=== PATIENT | female | born 1955 | race Two or more races ===

== ENCOUNTER 2024-03-01 23:51 | Inpatient (IN) | payer OTHER, MEDICARE ==
[~2024-03-01] VITALS: Ht 162.6 cm; Wt 129.3 kg
[2024-03-02] VITALS (33 sets, daily range): BP systolic 116–157; BP diastolic 66–130; TEMP 98.5–100.3; O2SAT 100
[2024-03-02 00:11] LABS: BASOPHILS # (AUTO) 0.1 K/uL (0.0-0.2); BASOPHILS % (AUTO) 0.4 % (0.0-2.0); EOSINOPHILS # (AUTO) 0.2 K/uL (0.0-0.7); EOSINOPHILS % (AUTO) 1.4 % (0.0-6.0); HEMATOCRIT 40 % (33-45); LYMPHOCYTES # (AUTO) 5.3 K/uL (0.8-4.8); LYMPHOCYTES % (AUTO) 35.4 % (20.0-44.0); MEAN CORPUSCULAR HEMOGLOBIN 30 PG (26.0-33.0); MEAN CORPUSCULAR HGB CONC 33 g/dl (31.0-36.0); MEAN CORPUSCULAR VOLUME 92 fL (82-100); MONOCYTES # (AUTO) 0.6 K/uL (0.1-1.30); MONOCYTES % (AUTO) 4.3 % (2.0-12.0); NEUTROPHILS # (AUTO) 8.8 K/uL (1.8-8.9); NEUTROPHILS % (AUTO) 58.5 % (43.0-81.0); PLATELET COUNT (AUTO) 460 K/uL (150-450); RED BLOOD CELL COUNT(AUTO) 4.29 MIL/uL (4.0-5.2); RED CELL DISTRIBUTION WIDTH 15.1 % (11.5-15.0)
[2024-03-02 00:26] LABS: INR 1.08 (0.91-1.10); PARTIAL THROMBOPLASTIN TIME 30.8 SEC (24.3-34.3); PROTHROMBIN TIME 11.4 SECS (9.2-11.1)
[2024-03-02] MEDS: IV NS 0.9% 1,000 ML BAG IV ONE (00:31)
[2024-03-02] MEDS: ROCURONIUM BROMIDE 50 MG/5 ML IV ONE (00:31)
[2024-03-02] MEDS: ETOMIDATE 2 MG/ML VIAL IV ONE (00:31)
[2024-03-02] MEDS ORDERED: CEFEPIME 1 GM VIAL ONE (00:37)
[2024-03-02] MEDS ORDERED: VANCOMYCIN 1 GM /D5W 250 ML PB IV ONE (00:37)
[2024-03-02] MEDS: CEFEPIME 1 GM in IV D5W 50 ML IV ONE (00:39)
[2024-03-02 00:45] LABS: APPEARANCE,URINE SLIGHTLY CLOUDY (CLEAR); BILIRUBIN,URINE NEGATIVE (NEGATIVE); BLOOD, URINE NEGATIVE Ery/uL (NEGATIVE); COLOR,URINE YELLOW (YELLOW); KETONES,URINE NEGATIVE (NEGATIVE); LEUKOCYTE ESTERASE ,URINE 1+ (NEGATIVE); NITRITE, URINE NEGATIVE (NEGATIVE); PH,URINE 5.5 (5.0-8.0); PROTEIN,URINE 1+ mg/dl (NEGATIVE); UGLUCOSE NEGATIVE (NEGATIVE)
[2024-03-02 01:06] LABS: ADD URINE CULTURE YES; BACTERIA,URINE Many /HPF (None Seen); RBC,URINE 0-2 /HPF (0-2); WBC,URINE 51-80 /HPF (0-3)
[2024-03-02 01:09] LABS: AMPHETAMINE, URINE NEGATIVE (NEGATIVE); BARBITURATE, URINE NEGATIVE (NEGATIVE); BENZODIAZEPINE, URINE NEGATIVE (NEGATIVE); CANNABINOID, URINE NEGATIVE (NEGATIVE); COCCAINE, URINE NEGATIVE (NEGATIVE); OPIATE, URINE NEGATIVE (NEGATIVE); PHENCYCLIDINE SCREEN,URINE NEGATIVE (NEGATIVE)
[2024-03-02 01:13] LABS: LACTIC ACID 1.3 mmol/L (0.4-2.0)
[2024-03-02] MEDS ORDERED: ASPIRIN 300 MG/SUPP.RECT RC ONE (01:20)
[2024-03-02] MEDS ORDERED: PROPOFOL 100 ML ONE ×2 (01:24→05:24)
[2024-03-02] MEDS: ASPIRIN 300 MG/SUPP.RECT RC ONE (01:25)
[2024-03-02] MEDS: VANCOMYCIN 1 GM in IV D5W 250 ML IV ONE (01:25)
[2024-03-02] MEDS ORDERED: ZOLPIDEM TARTRATE 5 MG TABLET PO PRN (01:30)
[2024-03-02] MEDS ORDERED: MAGNESIUM HYDROXIDE 30 ML UDC PO PRN (01:30)
[2024-03-02] MEDS ORDERED: MAG HYDROX/AL HYDROX/SIMETH 30 ML UDC PO PRN (01:30)
[2024-03-02] MEDS ORDERED: ACETAMINOPHEN 325 MG TABLET PO PRN (01:30)
[2024-03-02] MEDS ORDERED: ONDANSETRON HCL/PF 4 MG/2 ML VIAL IVP PRN (01:30)
[2024-03-02 01:33] LABS: ASPARTATE AMINOTRANSFERASE 26 U/L (15-37); BILIRUBIN,DIRECT 0.1 mg/dL (0.0-0.2); BILIRUBIN,TOTAL 0.3 mg/dL (0.2-1.0); CREATININE 0.9 mg/dL (0.6-1.3)
[2024-03-02] MEDS: PROPOFOL 100 ML IV PRN ×2 (01:38→09:55)
[2024-03-02 01:45] LABS: ALANINE AMINOTRANSFERASE 21 U/L (12-78); ALBUMIN 3.7 g/dL (3.4-5.0); ALKALINE PHOSPHATASE 95 U/L (46-116); CALCIUM, SERUM 9.6 mg/dL (8.5-10.1); CARBON DIOXIDE 26 mmol/L (21-32); CHLORIDE 95 mmol/L (98-107); GLUCOSE 187 mg/dL (74-106); POTASSIUM 5.7 mmol/L (3.5-5.1); SODIUM SERUM 130 mmol/L (136-145); TOTAL PROTEIN, SERUM 8.4 g/dL (6.4-8.2); UREA NITROGEN, BLOOD 25 mg/dL (7-18)
[2024-03-02] MEDS ORDERED: INSULIN REGULAR, HUMAN 100 UNIT/ML 3 ML VIAL SQ PRN (02:00)
[2024-03-02] MEDS ORDERED: DEXTROSE 50%-WATER 50 ML DISP.SYRIN IV PRN (02:00)
[2024-03-02] MEDS ORDERED: FUROSEMIDE 20 MG/2 ML VIAL ONE (02:20)
[2024-03-02] MEDS ORDERED: CALCIUM CHLORIDE 1,000 MG/10 ML DISP.SYRIN ONE (02:21)
[2024-03-02] MEDS ORDERED: SODIUM BICARBONATE SYR 50 MEQ/50 ML DISP.SYRIN ONE (02:21)
[2024-03-02] MEDS: CALCIUM CHLORIDE 1,000 MG/10 ML DISP.SYRIN IV ONE (02:38)
[2024-03-02] MEDS: DEXTROSE 50%-WATER 50 ML DISP.SYRIN IV ONE (02:38)
[2024-03-02] MEDS: FUROSEMIDE 40 MG/4 ML VIAL IV ONE (02:39)
[2024-03-02] MEDS: SODIUM BICARBONATE SYR 50 MEQ/50 ML DISP.SYRIN IV ONE (02:39)
[2024-03-02] MEDS: INSULIN REGULAR, HUMAN 100 UNIT/ML 10 ML VIAL IV ONE (02:40)
[2024-03-02 02:44] LABS: ABG BASE EXCESS 1.1 mmol/L (-2.0-3.0); ABG OXYGEN SATURATION 99.3 % (94.0-98.0); ABG PCO2 32.9 mmHg (32.0-45.0); ABG PH 7.481 (7.350-7.450); ABG PO2 314.6 mmHg (83.0-108.0); ABG TOTAL HEMOGLOBIN 12.8 G/dL (12.0-16.0); COHb 0.3 % (0.5-1.5); MetHb 0.2 % (0.0-1.5); O2Hb 98.8 % (94.0-97.0); PEEP,BG 5 cm H2O; VT, ABG 500 mL
[2024-03-02] MEDS: ALBUTEROL FS 2.5 MG/3 ML VIAL.NEB NEB ONE (03:37)
[2024-03-02] MEDS ORDERED: ALBUTEROL FS 2.5 MG/3 ML VIAL.NEB ONE (03:38)
[2024-03-02] MEDS: BLOOD SUGAR DIAGNOSTIC 1 EACH STRIP IN SCH ×2 (05:00→12:39)
[2024-03-02] MEDS ORDERED: ROCURONIUM BROMIDE 50 MG/5 ML IV ONE ×2 (08:35)
[2024-03-02] MEDS ORDERED: ZOLPIDEM TARTRATE 5 MG TABLET GT PRN (09:44)
[2024-03-02] MEDS ORDERED: MAG HYDROX/AL HYDROX/SIMETH 30 ML UDC GT PRN (09:44)
[2024-03-02] MEDS ORDERED: MAGNESIUM HYDROXIDE 30 ML UDC GT PRN (09:44)
[2024-03-02] MEDS: IV NS 0.9% 1,000 ML IV PRN (09:55)
[2024-03-02] MEDS: ACETAMINOPHEN 650 MG/20.3 ML UDC GT PRN (09:57)
[2024-03-02] MEDS: PANTOPRAZOLE 40 MG VIAL IV SCH (09:57)
[2024-03-02] MEDS: ENOXAPARIN SODIUM 40 MG/0.4 ML DISP.SYRIN SQ SCH (09:59)
[2024-03-02] MEDS ORDERED: PHARMACY TO CHANGE PO MEDS TO GT/NG XX PRN (10:00)
[2024-03-02] MEDS ORDERED: ACET325T53 PO (10:31)
[2024-03-02] MEDS ORDERED: GABA300C PO (10:31)
[2024-03-02] MEDS ORDERED: GLUC1KIT IM (10:31)
[2024-03-02] MEDS ORDERED: ATOR20TA PO (10:31)
[2024-03-02] MEDS ORDERED: DOCU100C36 PO (10:31)
[2024-03-02] MEDS ORDERED: INSU100V42 SQ (10:31)
[2024-03-02] MEDS ORDERED: ENOX40DI SQ (10:31)
[2024-03-02] MEDS ORDERED: LEVO50TA8 PO (10:31)
[2024-03-02] MEDS ORDERED: POVI1MED TP (10:32)
[2024-03-02] MEDS ORDERED: NALO4SPR NS (10:32)
[2024-03-02] MEDS ORDERED: MINE133E RC (10:32)
[2024-03-02] MEDS ORDERED: ONDA-97 PO (10:32)
[2024-03-02] MEDS ORDERED: MULT-213 PO (10:32)
[2024-03-02] MEDS ORDERED: METF-440 PO (10:32)
[2024-03-02] MEDS ORDERED: ZINC50TA39 PO (10:32)
[2024-03-02] MEDS ORDERED: ALLA266C2 TP (10:32)
[2024-03-02] MEDS ORDERED: NEOM28OI TP (10:32)
[2024-03-02] MEDS ORDERED: ASCO-352 PO (10:32)
[2024-03-02] MEDS ORDERED: POLY17PO4 PO (10:32)
[2024-03-02] MEDS ORDERED: OXYC1TAB12 PO (10:32)
[2024-03-02] MEDS: CEFEPIME 2 GM in IV D5W 100 ML IV SCH (11:02)
[2024-03-02] MEDS: INSULIN REGULAR, HUMAN 100 UNIT/ML 3 ML VIAL SQ PRN (12:41)
[2024-03-02] MEDS: GLUCERNA 1.2 1,000 ML BOTTLE NG PRN (13:39)
[2024-03-02] MEDS: VANCOMYCIN HCL 1.25 GM in IV D5W 250 ML IV SCH (13:42)
[2024-03-02] MEDS: IPRATROPIUM NEB FS 0.5 MG/2.5 ML AMPUL.NEB NEB SCH (14:04)
[2024-03-02] MEDS: ALBUTEROL FS 2.5 MG/3 ML VIAL.NEB NEB SCH (14:04)
[2024-03-02] MEDS ORDERED: PROPOFOL 100 ML IV PRN (16:30)
[2024-03-02] MEDS: ALBUTEROL HALF STRENGTH 1.25 MG/3 ML VIAL.NEB NEB SCH (19:25)
[2024-03-03] VITALS (37 sets, daily range): BP systolic 108–172; BP diastolic 65–103; TEMP 97.5–98.2; O2SAT 94–100
[2024-03-03] MEDS: Z GUARD REMEDY 4 OZ OINT TP PRN (07:51)
[2024-03-03] MEDS: GLUCERNA 1.2 1,000 ML BOTTLE NG PRN (07:53)
[2024-03-03] MEDS: PANTOPRAZOLE 40 MG/PACK PACK NG SCH (08:40)
[2024-03-03 10:26] LABS: ABG BASE EXCESS -1.1 mmol/L (-2.0-3.0); ABG OXYGEN SATURATION 97.8 % (94.0-98.0); ABG PCO2 22.4 mmHg (32.0-45.0); ABG PH 7.554 (7.350-7.450); ABG PO2 95.5 mmHg (83.0-108.0); ABG TOTAL HEMOGLOBIN 13.4 G/dL (12.0-16.0); COHb 0.9 % (0.5-1.5); MetHb 0.3 % (0.0-1.5); O2Hb 96.6 % (94.0-97.0); PEEP,BG 5 cm H2O; SITE, ABG RIGHT RADIAL; VT, ABG 500 mL
[2024-03-03 13:36] LABS: BASOPHILS % (AUTO) 0.3 % (0.0-2.0); EOSINOPHILS # (AUTO) 0.3 K/uL (0.0-0.7); HEMATOCRIT 36 % (33-45); HEMOGLOBIN 12.3 g/dL (11.5-14.8); LYMPHOCYTES # (AUTO) 2.3 K/uL (0.8-4.8); MEAN CORPUSCULAR HEMOGLOBIN 30 PG (26.0-33.0); MEAN CORPUSCULAR HGB CONC 34 g/dl (31.0-36.0); MEAN CORPUSCULAR VOLUME 89 fL (82-100); MONOCYTES # (AUTO) 0.7 K/uL (0.1-1.30); MONOCYTES % (AUTO) 6.9 % (2.0-12.0); NEUTROPHILS # (AUTO) 6.7 K/uL (1.8-8.9); NEUTROPHILS % (AUTO) 66.8 % (43.0-81.0); PLATELET COUNT (AUTO) 343 K/uL (150-450); RED BLOOD CELL COUNT(AUTO) 4.05 MIL/uL (4.0-5.2); RED CELL DISTRIBUTION WIDTH 14.9 % (11.5-15.0); WHITE BLOOD COUNT (AUTO) 10.1 K/uL (4.3-11.0)
[2024-03-03 14:12] LABS: CALCIUM, SERUM 9.2 mg/dL (8.5-10.1); CREATININE 0.7 mg/dL (0.6-1.3); MAGNESIUM 1.2 mg/dL (1.8-2.4); PHOSPHORUS 3.1 mg/dL (2.5-4.9); POTASSIUM 3.5 mmol/L (3.5-5.1)
[2024-03-03 15:52] LABS: THYROID STIMULATING HORMONE 11.85 uIU/mL (0.358-3.74)
[2024-03-03] MEDS: Magnesium 1GM/D5W 100ML PREMIX 100 ML IV SCH (16:17)
[2024-03-04] VITALS (33 sets, daily range): BP systolic 98–153; BP diastolic 55–80; TEMP 98–98.6; O2SAT 97–100
[2024-03-04 04:47] LABS: BASOPHILS % (AUTO) 0.3 % (0.0-2.0); EOSINOPHILS # (AUTO) 0.3 K/uL (0.0-0.7); EOSINOPHILS % (AUTO) 2.7 % (0.0-6.0); HEMATOCRIT 36 % (33-45); HEMOGLOBIN 11.9 g/dL (11.5-14.8); LYMPHOCYTES # (AUTO) 2.8 K/uL (0.8-4.8); LYMPHOCYTES % (AUTO) 27.7 % (20.0-44.0); MEAN CORPUSCULAR HEMOGLOBIN 31 PG (26.0-33.0); MEAN CORPUSCULAR HGB CONC 33 g/dl (31.0-36.0); MEAN CORPUSCULAR VOLUME 92 fL (82-100); MONOCYTES # (AUTO) 0.9 K/uL (0.1-1.30); MONOCYTES % (AUTO) 9.4 % (2.0-12.0); NEUTROPHILS % (AUTO) 59.9 % (43.0-81.0); PLATELET COUNT (AUTO) 329 K/uL (150-450); RED BLOOD CELL COUNT(AUTO) 3.89 MIL/uL (4.0-5.2); RED CELL DISTRIBUTION WIDTH 15.4 % (11.5-15.0)
[2024-03-04 04:49] LABS: CALCIUM, SERUM 8.5 mg/dL (8.5-10.1); CREATININE 0.7 mg/dL (0.6-1.3); MAGNESIUM 1.8 mg/dL (1.8-2.4); PHOSPHORUS 3.5 mg/dL (2.5-4.9); POTASSIUM 3.7 mmol/L (3.5-5.1)
[2024-03-04 05:42] LABS: ABG BASE EXCESS -2.5 mmol/L (-2.0-3.0); ABG OXYGEN SATURATION 97.6 % (94.0-98.0); ABG PCO2 26.9 mmHg (32.0-45.0); ABG PH 7.481 (7.350-7.450); ABG PO2 98.9 mmHg (83.0-108.0); ABG TOTAL HEMOGLOBIN 12.8 G/dL (12.0-16.0); COHb 0.6 % (0.5-1.5); MetHb 0.3 % (0.0-1.5); O2Hb 96.7 % (94.0-97.0); PEEP,BG 5 cm H2O; SITE, ABG LEFT RADIAL; VT, ABG 500 mL
[2024-03-05] VITALS (27 sets, daily range): BP systolic 90–160; BP diastolic 47–118; TEMP 98.1–99.1; O2SAT 89–100
[2024-03-05 05:25] LABS: CALCIUM, SERUM 8.7 mg/dL (8.5-10.1); CREATININE 0.6 mg/dL (0.6-1.3); POTASSIUM 3.5 mmol/L (3.5-5.1)
[2024-03-05 05:27] LABS: BASOPHILS # (AUTO) 0.1 K/uL (0.0-0.2); BASOPHILS % (AUTO) 0.6 % (0.0-2.0); EOSINOPHILS # (AUTO) 0.2 K/uL (0.0-0.7); HEMATOCRIT 33 % (33-45); HEMOGLOBIN 11.1 g/dL (11.5-14.8); LYMPHOCYTES # (AUTO) 1.6 K/uL (0.8-4.8); MEAN CORPUSCULAR HEMOGLOBIN 31 PG (26.0-33.0); MEAN CORPUSCULAR HGB CONC 34 g/dl (31.0-36.0); MEAN CORPUSCULAR VOLUME 91 fL (82-100); MONOCYTES # (AUTO) 0.8 K/uL (0.1-1.30); MONOCYTES % (AUTO) 7.3 % (2.0-12.0); NEUTROPHILS # (AUTO) 7.6 K/uL (1.8-8.9); NEUTROPHILS % (AUTO) 74.1 % (43.0-81.0); PLATELET COUNT (AUTO) 349 K/uL (150-450); RED CELL DISTRIBUTION WIDTH 15.4 % (11.5-15.0); WHITE BLOOD COUNT (AUTO) 10.3 K/uL (4.3-11.0)
[2024-03-05] MEDS: IV NS 0.9% 1,000 ML IV PRN (10:29)
[2024-03-05 10:44] LABS: ABG OXYGEN SATURATION 96.8 % (94.0-98.0); ABG PCO2 35.2 mmHg (32.0-45.0); ABG PH 7.382 (7.350-7.450); ABG TOTAL HEMOGLOBIN 12.5 G/dL (12.0-16.0); COHb 0.5 % (0.5-1.5); MetHb 0.1 % (0.0-1.5); O2Hb 96.2 % (94.0-97.0); PEEP,BG 5 cm H2O; SITE, ABG RIGHT RADIAL; VT, ABG 500 mL
[2024-03-06] VITALS (32 sets, daily range): BP systolic 104–190; BP diastolic 55–92; TEMP 97.9–98.4; O2SAT 95–100
[2024-03-06 05:24] LABS: BASOPHILS % (AUTO) 0.3 % (0.0-2.0); EOSINOPHILS # (AUTO) 0.4 K/uL (0.0-0.7); EOSINOPHILS % (AUTO) 3.9 % (0.0-6.0); HEMATOCRIT 31 % (33-45); HEMOGLOBIN 10.3 g/dL (11.5-14.8); LYMPHOCYTES % (AUTO) 19.9 % (20.0-44.0); MEAN CORPUSCULAR HEMOGLOBIN 31 PG (26.0-33.0); MEAN CORPUSCULAR HGB CONC 34 g/dl (31.0-36.0); MEAN CORPUSCULAR VOLUME 92 fL (82-100); MONOCYTES % (AUTO) 9.8 % (2.0-12.0); NEUTROPHILS # (AUTO) 6.5 K/uL (1.8-8.9); NEUTROPHILS % (AUTO) 66.1 % (43.0-81.0); PLATELET COUNT (AUTO) 324 K/uL (150-450); RED BLOOD CELL COUNT(AUTO) 3.35 MIL/uL (4.0-5.2); RED CELL DISTRIBUTION WIDTH 15.7 % (11.5-15.0); WHITE BLOOD COUNT (AUTO) 9.8 K/uL (4.3-11.0)
[2024-03-06 09:02] LABS: ABG BASE EXCESS -3.5 mmol/L (-2.0-3.0); ABG OXYGEN SATURATION 98.3 % (94.0-98.0); ABG PH 7.418 (7.350-7.450); ABG PO2 114.8 mmHg (83.0-108.0); ABG TOTAL HEMOGLOBIN 11.3 G/dL (12.0-16.0); COHb 0.6 % (0.5-1.5); MetHb 0.3 % (0.0-1.5); O2Hb 97.4 % (94.0-97.0); PEEP,BG 5 cm H2O; SITE, ABG RIGHT BRACHIAL; VT, ABG 500 mL
[2024-03-06 10:39] LABS: CHOLESTEROL 147 mg/dL (<200); HDL CHOLESTEROL 43 mg/dL (40-60); LDL 70 mg/dL (0-99); TRIGLYCERIDES 108 mg/dL (30-150)
[2024-03-06] MEDS: dexaMETHasone SOD PHOSPHATE 10 MG/ML VIAL IV SCH (14:10)
[2024-03-06] MEDS: diphenhydrAMINE HCL 50 MG/ML VIAL IV SCH (14:10)
[2024-03-06] MEDS: FAMOTIDINE/PF INJ 20 MG/2 ML VIAL IV SCH (14:11)
[2024-03-07] VITALS (31 sets, daily range): BP systolic 105–172; BP diastolic 55–90; TEMP 97–98.5; O2SAT 94–100
[2024-03-07] MEDS: hydrALAZINE HCL IV 20 MG VIAL IV PRN (00:14)
[2024-03-07 05:44] LABS: BASOPHILS % (AUTO) 0.1 % (0.0-2.0); EOSINOPHILS % (AUTO) 0.1 % (0.0-6.0); HEMATOCRIT 35 % (33-45); HEMOGLOBIN 11.7 g/dL (11.5-14.8); LYMPHOCYTES # (AUTO) 1.3 K/uL (0.8-4.8); MEAN CORPUSCULAR HEMOGLOBIN 30 PG (26.0-33.0); MEAN CORPUSCULAR HGB CONC 33 g/dl (31.0-36.0); MEAN CORPUSCULAR VOLUME 91 fL (82-100); MONOCYTES # (AUTO) 0.5 K/uL (0.1-1.30); MONOCYTES % (AUTO) 4.8 % (2.0-12.0); NEUTROPHILS # (AUTO) 8.6 K/uL (1.8-8.9); PLATELET COUNT (AUTO) 336 K/uL (150-450); RED BLOOD CELL COUNT(AUTO) 3.84 MIL/uL (4.0-5.2); RED CELL DISTRIBUTION WIDTH 15.8 % (11.5-15.0); WHITE BLOOD COUNT (AUTO) 10.4 K/uL (4.3-11.0)
[2024-03-08] VITALS (26 sets, daily range): BP systolic 103–176; BP diastolic 53–93; TEMP 97.5–98.4; O2SAT 91–100
[2024-03-08 13:46] LABS: BILIRUBIN,TOTAL 0.2 mg/dL (0.2-1.0); CALCIUM, SERUM 8.6 mg/dL (8.5-10.1); CREATININE 0.7 mg/dL (0.6-1.3); PHOSPHORUS 2.2 mg/dL (2.5-4.9); POTASSIUM 4.1 mmol/L (3.5-5.1); TOTAL PROTEIN, SERUM 6.2 g/dL (6.4-8.2)
[2024-03-08 14:15] LABS: BASOPHILS % (AUTO) 0.1 % (0.0-2.0); EOSINOPHILS % (AUTO) 0.2 % (0.0-6.0); HEMATOCRIT 35 % (33-45); HEMOGLOBIN 11.4 g/dL (11.5-14.8); LYMPHOCYTES # (AUTO) 1.4 K/uL (0.8-4.8); LYMPHOCYTES % (AUTO) 9.9 % (20.0-44.0); MEAN CORPUSCULAR HEMOGLOBIN 31 PG (26.0-33.0); MEAN CORPUSCULAR HGB CONC 33 g/dl (31.0-36.0); MEAN CORPUSCULAR VOLUME 93 fL (82-100); MONOCYTES # (AUTO) 1.1 K/uL (0.1-1.30); NEUTROPHILS # (AUTO) 11.7 K/uL (1.8-8.9); NEUTROPHILS % (AUTO) 81.8 % (43.0-81.0); PLATELET COUNT (AUTO) 340 K/uL (150-450); RED BLOOD CELL COUNT(AUTO) 3.71 MIL/uL (4.0-5.2); WHITE BLOOD COUNT (AUTO) 14.2 K/uL (4.3-11.0)
[2024-03-08 15:28] LABS: ANISOCYTOSIS 1+; BAND % (MANUAL) 1 % (0.0-5.0); BASOPHILS % (MANUAL) 0 % (0.0-2.0); EOSINOPHILS % (MANUAL) 0 % (0-4); LYMPHOCYTES % (MANUAL) 11 % (16-48); MONOCYTES % (MANUAL) 8 % (0-11.0); NEUTROPHILS % (MANUAL) 80 (42-76); PLATELET ESTIMATE ADEQUATE
[2024-03-08] MEDS: NEUTRA PHOS 1 POWD.PACKET GT ONE (16:51)
[2024-03-09] VITALS (29 sets, daily range): BP systolic 95–154; BP diastolic 53–85; TEMP 97.5–98.2; O2SAT 94–100
[2024-03-09 05:38] LABS: HEMATOCRIT 32 % (33-45); HEMOGLOBIN 10.7 g/dL (11.5-14.8); LYMPHOCYTES # (AUTO) 1.5 K/uL (0.8-4.8); LYMPHOCYTES % (AUTO) 13.6 % (20.0-44.0); MEAN CORPUSCULAR HEMOGLOBIN 30 PG (26.0-33.0); MEAN CORPUSCULAR HGB CONC 34 g/dl (31.0-36.0); MEAN CORPUSCULAR VOLUME 90 fL (82-100); MONOCYTES # (AUTO) 0.9 K/uL (0.1-1.30); MONOCYTES % (AUTO) 8.4 % (2.0-12.0); NEUTROPHILS # (AUTO) 8.3 K/uL (1.8-8.9); PLATELET COUNT (AUTO) 337 K/uL (150-450); RED BLOOD CELL COUNT(AUTO) 3.51 MIL/uL (4.0-5.2); RED CELL DISTRIBUTION WIDTH 15.3 % (11.5-15.0); WHITE BLOOD COUNT (AUTO) 10.7 K/uL (4.3-11.0)
[2024-03-09 06:55] LABS: CALCIUM, SERUM 8.6 mg/dL (8.5-10.1); POTASSIUM 4.1 mmol/L (3.5-5.1)
[2024-03-09 06:56] LABS: CREATININE 0.7 mg/dL (0.6-1.3)
[2024-03-09] MEDS: NEUTRA PHOS 1 POWD.PACKET GT ONE (16:14)
[2024-03-09] MEDS: dexaMETHasone SOD PHOSPHATE 10 MG/ML VIAL IV SCH (16:15)
[2024-03-10] VITALS (44 sets, daily range): BP systolic 88–180; BP diastolic 45–88; TEMP 97.5–98.4; O2SAT 94–100
[2024-03-10] MEDS: IV NS 0.9% 250 ML IV PRN (13:54)
[2024-03-10 15:33] LABS: BASOPHILS % (AUTO) 0.2 % (0.0-2.0); EOSINOPHILS % (AUTO) 0.1 % (0.0-6.0); HEMATOCRIT 33 % (33-45); HEMOGLOBIN 11.1 g/dL (11.5-14.8); LYMPHOCYTES # (AUTO) 1.7 K/uL (0.8-4.8); LYMPHOCYTES % (AUTO) 14.3 % (20.0-44.0); MEAN CORPUSCULAR HEMOGLOBIN 31 PG (26.0-33.0); MEAN CORPUSCULAR HGB CONC 34 g/dl (31.0-36.0); MEAN CORPUSCULAR VOLUME 91 fL (82-100); MONOCYTES # (AUTO) 1.2 K/uL (0.1-1.30); MONOCYTES % (AUTO) 10.1 % (2.0-12.0); NEUTROPHILS # (AUTO) 8.7 K/uL (1.8-8.9); NEUTROPHILS % (AUTO) 75.3 % (43.0-81.0); PLATELET COUNT (AUTO) 344 K/uL (150-450); RED BLOOD CELL COUNT(AUTO) 3.64 MIL/uL (4.0-5.2); RED CELL DISTRIBUTION WIDTH 15.7 % (11.5-15.0); WHITE BLOOD COUNT (AUTO) 11.6 K/uL (4.3-11.0)
[2024-03-10 16:00] LABS: ALBUMIN 2.2 g/dL (3.4-5.0); BILIRUBIN,TOTAL 0.2 mg/dL (0.2-1.0); CALCIUM, SERUM 8.9 mg/dL (8.5-10.1); CREATININE 0.7 mg/dL (0.6-1.3); PHOSPHORUS 2.9 mg/dL (2.5-4.9); POTASSIUM 4.4 mmol/L (3.5-5.1); TOTAL PROTEIN, SERUM 5.9 g/dL (6.4-8.2)
[2024-03-10 16:43] LABS: BAND % (MANUAL) 1 % (0.0-5.0); LYMPHOCYTES % (MANUAL) 13 % (16-48); MONOCYTES % (MANUAL) 4 % (0-11.0); NEUTROPHILS % (MANUAL) 82 (42-76); PLATELET ESTIMATE ADEQUATE
[2024-03-10 16:44] LABS: ANISOCYTOSIS 1+
[2024-03-11] VITALS (34 sets, daily range): BP systolic 109–156; BP diastolic 48–92; TEMP 96.9–98.5; O2SAT 89–100
[2024-03-11 04:55] LABS: EOSINOPHILS % (AUTO) 0.1 % (0.0-6.0); HEMATOCRIT 34 % (33-45); HEMOGLOBIN 11.2 g/dL (11.5-14.8); LYMPHOCYTES # (AUTO) 1.8 K/uL (0.8-4.8); LYMPHOCYTES % (AUTO) 15.3 % (20.0-44.0); MEAN CORPUSCULAR HEMOGLOBIN 30 PG (26.0-33.0); MEAN CORPUSCULAR HGB CONC 33 g/dl (31.0-36.0); MEAN CORPUSCULAR VOLUME 90 fL (82-100); NEUTROPHILS # (AUTO) 8.8 K/uL (1.8-8.9); NEUTROPHILS % (AUTO) 75.6 % (43.0-81.0); PLATELET COUNT (AUTO) 359 K/uL (150-450); RED BLOOD CELL COUNT(AUTO) 3.76 MIL/uL (4.0-5.2); RED CELL DISTRIBUTION WIDTH 15.6 % (11.5-15.0); WHITE BLOOD COUNT (AUTO) 11.6 K/uL (4.3-11.0)
[2024-03-11 05:04] LABS: CALCIUM, SERUM 8.9 mg/dL (8.5-10.1); CREATININE 0.7 mg/dL (0.6-1.3); POTASSIUM 4.1 mmol/L (3.5-5.1)
[2024-03-11 05:21] LABS: SERUM AMMONIA < 11 umol/L (11-32)
[2024-03-11 07:04] LABS: ANISOCYTOSIS 1+; LYMPHOCYTES % (MANUAL) 11 % (16-48); MONOCYTES % (MANUAL) 6 % (0-11.0); NEUTROPHILS % (MANUAL) 83 (42-76); PLATELET ESTIMATE ADEQUATE
[2024-03-12] VITALS (29 sets, daily range): BP systolic 94–185; BP diastolic 45–95; TEMP 96.8–99.1; O2SAT 95–100
[2024-03-12 05:33] LABS: CALCIUM, SERUM 8.8 mg/dL (8.5-10.1); CREATININE 0.6 mg/dL (0.6-1.3); POTASSIUM 4.5 mmol/L (3.5-5.1)
[2024-03-12] MEDS: LEVOTHYROXINE SODIUM 50 MCG TABLET PO SCH (07:30)
[2024-03-12] MEDS ORDERED: METOCLOPRAMIDE HCL 10 MG/10 ML UDC NG SCH (12:00)
[2024-03-12] MEDS: METOCLOPRAMIDE HCL 10 MG/10 ML UDC NG SCH (13:53)
[2024-03-12] MEDS: dexaMETHasone SOD PHOSPHATE 10 MG/ML VIAL IV SCH (17:37)
[2024-03-13] VITALS (39 sets, daily range): BP systolic 91–151; BP diastolic 49–98; TEMP 98–99; O2SAT 89–98
[2024-03-13 05:25] LABS: CALCIUM, SERUM 8.7 mg/dL (8.5-10.1); CREATININE 0.7 mg/dL (0.6-1.3); POTASSIUM 4.3 mmol/L (3.5-5.1)
[2024-03-13] MEDS: FUROSEMIDE 40 MG/4 ML VIAL IV ONE (17:39)
[2024-03-13] MEDS: FUROSEMIDE 40 MG/4 ML VIAL ONE (17:46)
[2024-03-14] VITALS (47 sets, daily range): BP systolic 98–144; BP diastolic 49–100; TEMP 98–99.3; O2SAT 92–99
[2024-03-14 04:50] LABS: BASOPHILS % (AUTO) 0.1 % (0.0-2.0); EOSINOPHILS % (AUTO) 0.2 % (0.0-6.0); HEMATOCRIT 32 % (33-45); HEMOGLOBIN 10.5 g/dL (11.5-14.8); LYMPHOCYTES # (AUTO) 1.3 K/uL (0.8-4.8); LYMPHOCYTES % (AUTO) 8.7 % (20.0-44.0); MEAN CORPUSCULAR HEMOGLOBIN 30 PG (26.0-33.0); MEAN CORPUSCULAR HGB CONC 33 g/dl (31.0-36.0); MEAN CORPUSCULAR VOLUME 90 fL (82-100); MONOCYTES # (AUTO) 0.6 K/uL (0.1-1.30); MONOCYTES % (AUTO) 3.9 % (2.0-12.0); NEUTROPHILS # (AUTO) 12.9 K/uL (1.8-8.9); NEUTROPHILS % (AUTO) 87.1 % (43.0-81.0); PLATELET COUNT (AUTO) 305 K/uL (150-450); RED BLOOD CELL COUNT(AUTO) 3.52 MIL/uL (4.0-5.2); RED CELL DISTRIBUTION WIDTH 15.2 % (11.5-15.0); WHITE BLOOD COUNT (AUTO) 14.8 K/uL (4.3-11.0)
[2024-03-14 05:12] LABS: ALBUMIN 2.2 g/dL (3.4-5.0); BILIRUBIN,TOTAL 0.4 mg/dL (0.2-1.0); CALCIUM, SERUM 9.3 mg/dL (8.5-10.1); CREATININE 0.7 mg/dL (0.6-1.3); MAGNESIUM 1.8 mg/dL (1.8-2.4); PHOSPHORUS 3.6 mg/dL (2.5-4.9); POTASSIUM 4.1 mmol/L (3.5-5.1); TOTAL PROTEIN, SERUM 5.8 g/dL (6.4-8.2)
[2024-03-14] MEDS: FUROSEMIDE 40 MG/4 ML VIAL IV ONE (13:09)
[2024-03-14] MEDS: FUROSEMIDE 40 MG/4 ML VIAL ONE (13:11)
[2024-03-15] VITALS (38 sets, daily range): BP systolic 104–155; BP diastolic 56–90; TEMP 99.5–101; O2SAT 85–100
[2024-03-15] MEDS: ACETAMINOPHEN 650 MG/20.3 ML UDC NG PRN (04:57)
[2024-03-15 05:17] LABS: BASOPHILS % (AUTO) 0.1 % (0.0-2.0); EOSINOPHILS # (AUTO) 0.2 K/uL (0.0-0.7); EOSINOPHILS % (AUTO) 1.1 % (0.0-6.0); HEMATOCRIT 33 % (33-45); HEMOGLOBIN 10.7 g/dL (11.5-14.8); LYMPHOCYTES % (AUTO) 13.1 % (20.0-44.0); MEAN CORPUSCULAR HEMOGLOBIN 30 PG (26.0-33.0); MEAN CORPUSCULAR HGB CONC 33 g/dl (31.0-36.0); MEAN CORPUSCULAR VOLUME 91 fL (82-100); MONOCYTES # (AUTO) 0.8 K/uL (0.1-1.30); NEUTROPHILS # (AUTO) 12.3 K/uL (1.8-8.9); NEUTROPHILS % (AUTO) 80.7 % (43.0-81.0); PLATELET COUNT (AUTO) 275 K/uL (150-450); RED BLOOD CELL COUNT(AUTO) 3.58 MIL/uL (4.0-5.2); RED CELL DISTRIBUTION WIDTH 15.3 % (11.5-15.0); WHITE BLOOD COUNT (AUTO) 15.3 K/uL (4.3-11.0)
[2024-03-15 05:40] LABS: ALBUMIN 2.5 g/dL (3.4-5.0); BILIRUBIN,TOTAL 0.5 mg/dL (0.2-1.0); CREATININE 0.8 mg/dL (0.6-1.3); MAGNESIUM 1.6 mg/dL (1.8-2.4); PHOSPHORUS 2.7 mg/dL (2.5-4.9); POTASSIUM 3.6 mmol/L (3.5-5.1); TOTAL PROTEIN, SERUM 6.4 g/dL (6.4-8.2)
[2024-03-15] MEDS: Magnesium 1GM/D5W 100ML PREMIX 100 ML IV SCH (11:37)
[2024-03-15] MEDS ORDERED: ROCURONIUM BROMIDE 50 MG/5 ML ONE (16:02)
[2024-03-15] MEDS ORDERED: FENTANYL PF 250MCG/5ML AMPUL ONE (16:02)
[2024-03-15] MEDS ORDERED: ANESTHESIA TRAY IN PYXIS 1 EA TRAY MC ONE (19:30)
[2024-03-15] MEDS ORDERED: VECURONIUM 10 MG VIAL IV ONE (20:17)
[2024-03-16] VITALS (44 sets, daily range): BP systolic 91–169; BP diastolic 48–97; TEMP 98.8–100.1; O2SAT 85–100
[2024-03-16 06:03] LABS: BASOPHILS % (AUTO) 0.1 % (0.0-2.0); EOSINOPHILS # (AUTO) 0.1 K/uL (0.0-0.7); EOSINOPHILS % (AUTO) 0.6 % (0.0-6.0); HEMATOCRIT 31 % (33-45); HEMOGLOBIN 10.3 g/dL (11.5-14.8); LYMPHOCYTES # (AUTO) 0.9 K/uL (0.8-4.8); MEAN CORPUSCULAR HEMOGLOBIN 30 PG (26.0-33.0); MEAN CORPUSCULAR HGB CONC 33 g/dl (31.0-36.0); MEAN CORPUSCULAR VOLUME 91 fL (82-100); MONOCYTES # (AUTO) 0.9 K/uL (0.1-1.30); MONOCYTES % (AUTO) 6.5 % (2.0-12.0); NEUTROPHILS # (AUTO) 11.4 K/uL (1.8-8.9); NEUTROPHILS % (AUTO) 85.8 % (43.0-81.0); PLATELET COUNT (AUTO) 253 K/uL (150-450); RED BLOOD CELL COUNT(AUTO) 3.46 MIL/uL (4.0-5.2); RED CELL DISTRIBUTION WIDTH 15.2 % (11.5-15.0); WHITE BLOOD COUNT (AUTO) 13.3 K/uL (4.3-11.0)
[2024-03-16 06:42] LABS: POTASSIUM 3.7 mmol/L (3.5-5.1)
[2024-03-16 06:52] LABS: CALCIUM, SERUM 8.8 mg/dL (8.5-10.1); CREATININE 0.6 mg/dL (0.6-1.3); MAGNESIUM 1.8 mg/dL (1.8-2.4)
[2024-03-16] MEDS: LIDOCAINE 1% INJ 50 ML MDV IJ ONE (09:43)
[2024-03-16] MEDS: VECURONIUM 10 MG VIAL IV PRN (09:48)
[2024-03-16] MEDS: MIDAZOLAM HCL 2 MG/2ML VIAL IV PRN (09:48)
[2024-03-16] MEDS: FENTANYL PF 100MCG/2ML AMPUL IV PRN (09:49)
[2024-03-16] MEDS: diphenhydrAMINE HCL 50 MG/ML VIAL IV SCH (14:40)
[2024-03-16] MEDS: IV D5/ 0.9% NACL 1,000 ML IV PRN (14:52)
[2024-03-16] MEDS: dexaMETHasone SOD PHOSPHATE 10 MG/ML VIAL IV SCH (15:55)
[2024-03-16] MEDS: Sodium Phosphate 15 MMOL in IV NS 0.9% 245 ML IV SCH (17:27)
[2024-03-17] VITALS (33 sets, daily range): BP systolic 94–141; BP diastolic 39–97; TEMP 97.9–98.8; O2SAT 94–100
[2024-03-17 04:59] LABS: EOSINOPHILS % (AUTO) 0.1 % (0.0-6.0); HEMATOCRIT 30 % (33-45); LYMPHOCYTES # (AUTO) 1.3 K/uL (0.8-4.8); LYMPHOCYTES % (AUTO) 13.9 % (20.0-44.0); MEAN CORPUSCULAR HEMOGLOBIN 30 PG (26.0-33.0); MEAN CORPUSCULAR HGB CONC 33 g/dl (31.0-36.0); MEAN CORPUSCULAR VOLUME 91 fL (82-100); MONOCYTES # (AUTO) 0.7 K/uL (0.1-1.30); MONOCYTES % (AUTO) 7.6 % (2.0-12.0); NEUTROPHILS # (AUTO) 7.2 K/uL (1.8-8.9); NEUTROPHILS % (AUTO) 78.4 % (43.0-81.0); PLATELET COUNT (AUTO) 236 K/uL (150-450); RED BLOOD CELL COUNT(AUTO) 3.35 MIL/uL (4.0-5.2); RED CELL DISTRIBUTION WIDTH 15.2 % (11.5-15.0); WHITE BLOOD COUNT (AUTO) 9.2 K/uL (4.3-11.0)
[2024-03-17 05:12] LABS: CALCIUM, SERUM 8.7 mg/dL (8.5-10.1); CREATININE 0.7 mg/dL (0.6-1.3); POTASSIUM 3.7 mmol/L (3.5-5.1)
[2024-03-17 05:31] LABS: BILIRUBIN,TOTAL 1.1 mg/dL (0.2-1.0); MAGNESIUM 1.8 mg/dL (1.8-2.4); PHOSPHORUS 2.9 mg/dL (2.5-4.9); TOTAL PROTEIN, SERUM 6.2 g/dL (6.4-8.2)
[2024-03-17] MEDS ORDERED: PRECEDEX 400 MCG/100 ML BOTTLE 100 ML IV PRN (11:00)
[2024-03-17] MEDS: METOCLOPRAMIDE HCL 10 MG/2 ML VIAL IV SCH (11:23)
[2024-03-17] MEDS: LEVOTHYROXINE INJ 100 MCG VIAL IV SCH (11:27)
[2024-03-17] MEDS ORDERED: IOHEXOL-300 100 ML VIAL IV ONE (13:25)
[2024-03-18] VITALS (24 sets, daily range): BP systolic 105–148; BP diastolic 54–79; TEMP 97.9–98.2; O2SAT 94–100
[2024-03-18 05:40] LABS: BASOPHILS % (AUTO) 0.1 % (0.0-2.0); HEMATOCRIT 29 % (33-45); HEMOGLOBIN 9.8 g/dL (11.5-14.8); LYMPHOCYTES # (AUTO) 1.5 K/uL (0.8-4.8); LYMPHOCYTES % (AUTO) 15.2 % (20.0-44.0); MEAN CORPUSCULAR HEMOGLOBIN 30 PG (26.0-33.0); MEAN CORPUSCULAR HGB CONC 34 g/dl (31.0-36.0); MEAN CORPUSCULAR VOLUME 91 fL (82-100); MONOCYTES # (AUTO) 0.9 K/uL (0.1-1.30); MONOCYTES % (AUTO) 8.4 % (2.0-12.0); NEUTROPHILS # (AUTO) 7.8 K/uL (1.8-8.9); NEUTROPHILS % (AUTO) 76.3 % (43.0-81.0); PLATELET COUNT (AUTO) 248 K/uL (150-450); RED BLOOD CELL COUNT(AUTO) 3.22 MIL/uL (4.0-5.2); RED CELL DISTRIBUTION WIDTH 15.2 % (11.5-15.0); WHITE BLOOD COUNT (AUTO) 10.2 K/uL (4.3-11.0)
[2024-03-18 06:27] LABS: BILIRUBIN,TOTAL 0.5 mg/dL (0.2-1.0); CALCIUM, SERUM 8.7 mg/dL (8.5-10.1); CREATININE 0.6 mg/dL (0.6-1.3); MAGNESIUM 1.9 mg/dL (1.8-2.4); PHOSPHORUS 1.9 mg/dL (2.5-4.9); POTASSIUM 3.5 mmol/L (3.5-5.1); TOTAL PROTEIN, SERUM 6.1 g/dL (6.4-8.2)
[2024-03-18] MEDS ORDERED: LEVOTHYROXINE INJ 100 MCG VIAL IV SCH (07:30)
[2024-03-18] MEDS: POTASSIUM PHOSPHATE MM 5 MMOL in IV NS 0.9% 100 ML IV SCH (08:32)
[2024-03-18] MEDS: FREE WATER VIA TUBE FEEDING GT SCH (11:14)
[2024-03-19] VITALS (24 sets, daily range): BP systolic 137–172; BP diastolic 65–93; TEMP 98–98.8; O2SAT 90–100
[2024-03-19 05:16] LABS: BASOPHILS % (AUTO) 0.2 % (0.0-2.0); EOSINOPHILS % (AUTO) 0.1 % (0.0-6.0); HEMATOCRIT 30 % (33-45); HEMOGLOBIN 9.9 g/dL (11.5-14.8); LYMPHOCYTES # (AUTO) 1.4 K/uL (0.8-4.8); LYMPHOCYTES % (AUTO) 11.8 % (20.0-44.0); MEAN CORPUSCULAR HEMOGLOBIN 30 PG (26.0-33.0); MEAN CORPUSCULAR HGB CONC 33 g/dl (31.0-36.0); MEAN CORPUSCULAR VOLUME 92 fL (82-100); MONOCYTES # (AUTO) 1.2 K/uL (0.1-1.30); MONOCYTES % (AUTO) 10.1 % (2.0-12.0); NEUTROPHILS # (AUTO) 9.1 K/uL (1.8-8.9); NEUTROPHILS % (AUTO) 77.8 % (43.0-81.0); PLATELET COUNT (AUTO) 235 K/uL (150-450); RED BLOOD CELL COUNT(AUTO) 3.25 MIL/uL (4.0-5.2); RED CELL DISTRIBUTION WIDTH 15.1 % (11.5-15.0); WHITE BLOOD COUNT (AUTO) 11.6 K/uL (4.3-11.0)
[2024-03-19 05:51] LABS: BILIRUBIN,TOTAL 0.7 mg/dL (0.2-1.0); CALCIUM, SERUM 8.5 mg/dL (8.5-10.1); CREATININE 0.6 mg/dL (0.6-1.3); MAGNESIUM 1.9 mg/dL (1.8-2.4); PHOSPHORUS 2.5 mg/dL (2.5-4.9); POTASSIUM 3.5 mmol/L (3.5-5.1); TOTAL PROTEIN, SERUM 6.1 g/dL (6.4-8.2)
[2024-03-19] MEDS: dexaMETHasone SOD PHOSPHATE 10 MG/ML VIAL IV SCH (08:40)
[2024-03-19] MEDS: IV D5/0.45 NACL 1,000 ML IV SCH (19:39)
[2024-03-20] VITALS (36 sets, daily range): BP systolic 120–177; BP diastolic 70–118; TEMP 98–99.1; O2SAT 95–100
[2024-03-20 04:39] LABS: BASOPHILS % (AUTO) 0.1 % (0.0-2.0); HEMATOCRIT 30 % (33-45); LYMPHOCYTES % (AUTO) 10.3 % (20.0-44.0); MEAN CORPUSCULAR HEMOGLOBIN 30 PG (26.0-33.0); MEAN CORPUSCULAR HGB CONC 33 g/dl (31.0-36.0); MEAN CORPUSCULAR VOLUME 92 fL (82-100); MONOCYTES # (AUTO) 0.8 K/uL (0.1-1.30); NEUTROPHILS % (AUTO) 81.6 % (43.0-81.0); PLATELET COUNT (AUTO) 242 K/uL (150-450); RED CELL DISTRIBUTION WIDTH 15.1 % (11.5-15.0); WHITE BLOOD COUNT (AUTO) 9.8 K/uL (4.3-11.0)
[2024-03-20 05:03] LABS: BILIRUBIN,TOTAL 0.8 mg/dL (0.2-1.0); CALCIUM, SERUM 8.3 mg/dL (8.5-10.1); CREATININE 0.5 mg/dL (0.6-1.3); MAGNESIUM 1.7 mg/dL (1.8-2.4); POTASSIUM 3.4 mmol/L (3.5-5.1)
[2024-03-20] MEDS: POTASSIUM CL. PREMIX PERIPHER. 50 ML IV SCH (08:58)
[2024-03-20] MEDS: Magnesium 1GM/D5W 100ML PREMIX 100 ML IV SCH (09:32)
[2024-03-20] MEDS: IV D5/0.45 NACL 1,000 ML IV PRN (12:22)
[2024-03-20] MEDS: CEFAZOLIN 1 GM in IV D5W 50 ML IV ONE (15:00)
[2024-03-20] MEDS: Sodium Phosphate 15 MMOL in IV NS 0.9% 245 ML IV ONE (16:51)
[2024-03-21] VITALS: BP 118/98; TEMP 98.2; O2SAT 98
[2024-03-21] MEDS: GLUCERNA 1.2 1,000 ML BOTTLE NG PRN (02:49)
[2024-03-21 04:00] VITALS: BP 135/74; TEMP 99; O2SAT 98
[2024-03-21 08:00] VITALS: BP 121/71; TEMP 98.4; O2SAT 100
[2024-03-21 12:00] VITALS: BP 135/72; TEMP 98.5; O2SAT 97
[2024-03-21 16:31] VITALS: BP 130/70; TEMP 98.4; O2SAT 99
[2024-03-21 20:00] VITALS: BP 139/75; TEMP 98.8; O2SAT 99
[2024-03-21 21:13] LABS: BASOPHILS % (AUTO) 0.3 % (0.0-2.0); EOSINOPHILS # (AUTO) 0.2 K/uL (0.0-0.7); EOSINOPHILS % (AUTO) 2.3 % (0.0-6.0); HEMATOCRIT 31 % (33-45); LYMPHOCYTES # (AUTO) 2.8 K/uL (0.8-4.8); LYMPHOCYTES % (AUTO) 33.2 % (20.0-44.0); MEAN CORPUSCULAR HEMOGLOBIN 30 PG (26.0-33.0); MEAN CORPUSCULAR HGB CONC 32 g/dl (31.0-36.0); MEAN CORPUSCULAR VOLUME 92 fL (82-100); MONOCYTES # (AUTO) 0.6 K/uL (0.1-1.30); MONOCYTES % (AUTO) 6.8 % (2.0-12.0); NEUTROPHILS # (AUTO) 4.8 K/uL (1.8-8.9); NEUTROPHILS % (AUTO) 57.4 % (43.0-81.0); PLATELET COUNT (AUTO) 238 K/uL (150-450); RED BLOOD CELL COUNT(AUTO) 3.37 MIL/uL (4.0-5.2); RED CELL DISTRIBUTION WIDTH 15.3 % (11.5-15.0); WHITE BLOOD COUNT (AUTO) 8.4 K/uL (4.3-11.0)
[2024-03-21 21:32] LABS: CALCIUM, SERUM 8.2 mg/dL (8.5-10.1); CREATININE 0.7 mg/dL (0.6-1.3); POTASSIUM 3.1 mmol/L (3.5-5.1)
[2024-03-22] VITALS: BP 134/95; TEMP 98.4; O2SAT 99
[2024-03-22 04:00] VITALS: BP 120/80; TEMP 99; O2SAT 99
[2024-03-22 08:00] VITALS: BP 122/67; TEMP 99.1; O2SAT 100
[2024-03-22] MEDS: LEVOTHYROXINE SODIUM 25 MCG TABLET GT SCH (09:11)
[2024-03-22 11:09] LABS: BASOPHILS % (AUTO) 0.2 % (0.0-2.0); EOSINOPHILS # (AUTO) 0.2 K/uL (0.0-0.7); EOSINOPHILS % (AUTO) 3.4 % (0.0-6.0); HEMATOCRIT 29 % (33-45); HEMOGLOBIN 9.4 g/dL (11.5-14.8); LYMPHOCYTES # (AUTO) 1.6 K/uL (0.8-4.8); LYMPHOCYTES % (AUTO) 25.7 % (20.0-44.0); MEAN CORPUSCULAR HEMOGLOBIN 30 PG (26.0-33.0); MEAN CORPUSCULAR HGB CONC 33 g/dl (31.0-36.0); MEAN CORPUSCULAR VOLUME 91 fL (82-100); MONOCYTES # (AUTO) 0.5 K/uL (0.1-1.30); MONOCYTES % (AUTO) 8.1 % (2.0-12.0); NEUTROPHILS % (AUTO) 62.6 % (43.0-81.0); PLATELET COUNT (AUTO) 226 K/uL (150-450); RED BLOOD CELL COUNT(AUTO) 3.12 MIL/uL (4.0-5.2); RED CELL DISTRIBUTION WIDTH 15.3 % (11.5-15.0); WHITE BLOOD COUNT (AUTO) 6.4 K/uL (4.3-11.0)
[2024-03-22 11:35] LABS: CALCIUM, SERUM 8.6 mg/dL (8.5-10.1); CREATININE 0.5 mg/dL (0.6-1.3)
[2024-03-22 12:00] VITALS: BP 149/99; TEMP 97.5; O2SAT 99
[2024-03-22] MEDS: ENOXAPARIN SODIUM 40 MG/0.4 ML DISP.SYRIN SQ SCH (15:06)
[2024-03-22 16:00] VITALS: BP 122/77; TEMP 98.8; O2SAT 100
[2024-03-22] MEDS: POTASSIUM CHLORIDE 20 MEQ POWDER PACKET GT ONE (16:06)
[2024-03-22 20:00] VITALS: BP 112/65; TEMP 100.6; O2SAT 100
[2024-03-23] VITALS: BP 134/83; TEMP 99; O2SAT 99
[2024-03-23 04:00] VITALS: BP 117/76; TEMP 98.9; O2SAT 98
[2024-03-23 08:00] VITALS: BP 123/97; TEMP 98.6; O2SAT 98
[2024-03-23 12:00] VITALS: BP 134/65; TEMP 99; O2SAT 98
[2024-03-23 12:48] LABS: CALCIUM, SERUM 8.6 mg/dL (8.5-10.1); CREATININE 0.5 mg/dL (0.6-1.3); MAGNESIUM 1.4 mg/dL (1.8-2.4); POTASSIUM 3.3 mmol/L (3.5-5.1)
[2024-03-23 12:52] LABS: BASOPHILS % (AUTO) 0.6 % (0.0-2.0); EOSINOPHILS # (AUTO) 0.3 K/uL (0.0-0.7); EOSINOPHILS % (AUTO) 4.3 % (0.0-6.0); HEMATOCRIT 28 % (33-45); HEMOGLOBIN 9.3 g/dL (11.5-14.8); LYMPHOCYTES # (AUTO) 1.2 K/uL (0.8-4.8); LYMPHOCYTES % (AUTO) 20.7 % (20.0-44.0); MEAN CORPUSCULAR HEMOGLOBIN 31 PG (26.0-33.0); MEAN CORPUSCULAR HGB CONC 33 g/dl (31.0-36.0); MEAN CORPUSCULAR VOLUME 92 fL (82-100); MONOCYTES # (AUTO) 0.5 K/uL (0.1-1.30); MONOCYTES % (AUTO) 8.6 % (2.0-12.0); NEUTROPHILS # (AUTO) 3.9 K/uL (1.8-8.9); NEUTROPHILS % (AUTO) 65.8 % (43.0-81.0); PLATELET COUNT (AUTO) 232 K/uL (150-450); RED BLOOD CELL COUNT(AUTO) 3.04 MIL/uL (4.0-5.2); RED CELL DISTRIBUTION WIDTH 15.2 % (11.5-15.0); WHITE BLOOD COUNT (AUTO) 5.9 K/uL (4.3-11.0)
[2024-03-23] MEDS: POTASSIUM CHLORIDE 20 MEQ POWDER PACKET GT ONE (15:45)
[2024-03-23] MEDS: NEUTRA PHOS 1 POWD.PACKET NG ONE (15:45)
[2024-03-23 16:00] VITALS: BP 139/70; TEMP 98.7; O2SAT 98
[2024-03-23] MEDS: Magnesium 1GM/D5W 100ML PREMIX 100 ML IV SCH (16:52)
[2024-03-23 20:00] VITALS: BP 142/73; TEMP 98.8; O2SAT 100
[2024-03-24] VITALS: BP 146/66; TEMP 98.9; O2SAT 99
[2024-03-24 04:00] VITALS: BP 124/59; TEMP 98.8; O2SAT 99
[2024-03-24 08:00] VITALS: BP 108/52; TEMP 98.8; O2SAT 99
[2024-03-24 12:00] VITALS: BP_SYST 112; BP_SYST 82; BP_DIAS 50; TEMP 99.4; O2SAT 94
[2024-03-24 15:44] LABS: BASOPHILS % (AUTO) 0.5 % (0.0-2.0); EOSINOPHILS # (AUTO) 0.1 K/uL (0.0-0.7); EOSINOPHILS % (AUTO) 1.7 % (0.0-6.0); HEMATOCRIT 28 % (33-45); HEMOGLOBIN 9.3 g/dL (11.5-14.8); LYMPHOCYTES % (AUTO) 23.5 % (20.0-44.0); MEAN CORPUSCULAR HEMOGLOBIN 30 PG (26.0-33.0); MEAN CORPUSCULAR HGB CONC 34 g/dl (31.0-36.0); MEAN CORPUSCULAR VOLUME 90 fL (82-100); MONOCYTES # (AUTO) 0.8 K/uL (0.1-1.30); NEUTROPHILS # (AUTO) 5.7 K/uL (1.8-8.9); NEUTROPHILS % (AUTO) 65.3 % (43.0-81.0); PLATELET COUNT (AUTO) 249 K/uL (150-450); RED BLOOD CELL COUNT(AUTO) 3.07 MIL/uL (4.0-5.2); RED CELL DISTRIBUTION WIDTH 15.3 % (11.5-15.0); WHITE BLOOD COUNT (AUTO) 8.7 K/uL (4.3-11.0)
[2024-03-24 16:00] VITALS: BP 97/46; TEMP 99; O2SAT 94
[2024-03-24 16:06] LABS: CALCIUM, SERUM 8.1 mg/dL (8.5-10.1); CREATININE 0.8 mg/dL (0.6-1.3); POTASSIUM 3.8 mmol/L (3.5-5.1)
[2024-03-24] MEDS: METFORMIN 500 MG TABLET PO SCH (16:33)
[2024-03-24 20:00] VITALS: BP 120/75; TEMP 99; O2SAT 96
[2024-03-25] VITALS: BP 100/55; TEMP 99; O2SAT 96
[2024-03-25 04:00] VITALS: BP 101/51; TEMP 100; O2SAT 96
[2024-03-25 08:00] VITALS: BP 115/66; TEMP 98.8; O2SAT 99
[2024-03-25 12:00] VITALS: BP 100/54; TEMP 98.8; O2SAT 94
[2024-03-25 16:00] VITALS: BP 98/58; TEMP 98; O2SAT 94
[2024-03-25 20:00] VITALS: BP 111/60; TEMP 100.2; O2SAT 97
[2024-03-25] MEDS: INSULIN GLARGINE, 100 UNIT/ML CARTRIDGE SQ SCH (22:06)
[2024-03-26] VITALS: BP 102/54; TEMP 98.9; O2SAT 96
[2024-03-26 04:00] VITALS: BP 100/55; TEMP 98.8; O2SAT 96
[2024-03-26 08:00] VITALS: BP 104/59; TEMP 98.7; O2SAT 96
[2024-03-26 12:00] VITALS: BP 114/57; TEMP 99.2; O2SAT 97
[2024-03-26] MEDS ORDERED: FAMO20TA80 PO (13:28)
[2024-03-26] MEDS ORDERED: METO5TAB87 PO (13:28)
[2024-03-26 16:00] VITALS: BP 122/50; TEMP 99.9; O2SAT 94
[2024-03-26 17:29] LABS: BASOPHILS % (AUTO) 0.3 % (0.0-2.0); EOSINOPHILS # (AUTO) 0.3 K/uL (0.0-0.7); EOSINOPHILS % (AUTO) 3.1 % (0.0-6.0); HEMATOCRIT 28 % (33-45); HEMOGLOBIN 9.5 g/dL (11.5-14.8); LYMPHOCYTES # (AUTO) 2.1 K/uL (0.8-4.8); LYMPHOCYTES % (AUTO) 24.6 % (20.0-44.0); MEAN CORPUSCULAR HEMOGLOBIN 31 PG (26.0-33.0); MEAN CORPUSCULAR HGB CONC 34 g/dl (31.0-36.0); MEAN CORPUSCULAR VOLUME 91 fL (82-100); MONOCYTES # (AUTO) 0.7 K/uL (0.1-1.30); MONOCYTES % (AUTO) 7.9 % (2.0-12.0); NEUTROPHILS # (AUTO) 5.6 K/uL (1.8-8.9); NEUTROPHILS % (AUTO) 64.1 % (43.0-81.0); PLATELET COUNT (AUTO) 291 K/uL (150-450); RED BLOOD CELL COUNT(AUTO) 3.09 MIL/uL (4.0-5.2); RED CELL DISTRIBUTION WIDTH 15.1 % (11.5-15.0); WHITE BLOOD COUNT (AUTO) 8.7 K/uL (4.3-11.0)
[2024-03-26 18:31] LABS: CALCIUM, SERUM 8.9 mg/dL (8.5-10.1); CREATININE 0.9 mg/dL (0.6-1.3); MAGNESIUM 1.7 mg/dL (1.8-2.4); PHOSPHORUS 2.1 mg/dL (2.5-4.9)
[2024-03-26 20:00] VITALS: BP 121/50; TEMP 98.9; O2SAT 98
[2024-03-27] VITALS: BP 105/53; TEMP 99.9; O2SAT 98
[2024-03-27 04:00] VITALS: BP 102/54; TEMP 98.9; O2SAT 98
[2024-03-27 08:00] VITALS: BP 98/53; TEMP 100; O2SAT 99
[2024-03-27 12:00] VITALS: BP 105/57; TEMP 97.9; O2SAT 95
[2024-03-27 16:00] VITALS: BP 94/53; TEMP 98.9; O2SAT 98
== END 2024-03-27 17:34 | DRG 5 ==
LOC: ER 23:59 → TRANSITION 03-02 06:46 → ICU 03-02 07:47 → TELE1 03-20 19:12 → TELE-TD 03-20 20:24 → TELE1 03-21 10:50
PROVIDERS: ADMIT Student in an Organized Health Care Education/Training Program; ATTEND Internal Medicine
PROC: 5A1955Z Respiratory Ventilation, Greater than 96 Consecutive Hours (ICD-10-PCS; principal; 2024-03-02)
PROC: 0DJ08ZZ Inspection of Upper Intestinal Tract, Via Natural or Artificial Opening Endoscopic (ICD-10-PCS; 2024-03-15)
PROC: 0B113F4 Bypass Trachea to Cutaneous with Tracheostomy Device, Percutaneous Approach (ICD-10-PCS; 2024-03-16)
PROC: 0DH63UZ Insertion of Feeding Device into Stomach, Percutaneous Approach (ICD-10-PCS; 2024-03-20)
DX: A41.9 Sepsis, unspecified organism (principal); I21.A1 Myocardial infarction type 2; J15.9 Unspecified bacterial pneumonia; N17.9 Acute kidney failure, unspecified; J90 Pleural effusion, not elsewhere classified; E83.39 Other disorders of phosphorus metabolism; F03.90 Unspecified dementia, unspecified severity, without behavioral disturbance, psychotic disturbance, mood disturbance, and anxiety; E87.1 Hypo-osmolality and hyponatremia; E86.9 Volume depletion, unspecified; Z99.11 Dependence on respirator [ventilator] status; J96.01 Acute respiratory failure with hypoxia; T78.3XXA Angioneurotic edema, initial encounter; Z20.822 Contact with and (suspected) exposure to COVID-19; K29.70 Gastritis, unspecified, without bleeding; M89.8X9 Other specified disorders of bone, unspecified site; E11.65 Type 2 diabetes mellitus with hyperglycemia; E03.9 Hypothyroidism, unspecified; E66.01 Morbid (severe) obesity due to excess calories; Z68.42 Body mass index [BMI] 45.0-49.9, adult; Z95.0 Presence of cardiac pacemaker; R13.10 Dysphagia, unspecified; Z79.84 Long term (current) use of oral hypoglycemic drugs; Z79.01 Long term (current) use of anticoagulants; Z79.899 Other long term (current) drug therapy; Z79.890 Hormone replacement therapy; Z79.4 Long term (current) use of insulin; N39.0 Urinary tract infection, site not specified; Y95 Nosocomial condition; I10 Essential (primary) hypertension; E87.5 Hyperkalemia; E87.6 Hypokalemia; E78.5 Hyperlipidemia, unspecified; D64.9 Anemia, unspecified; B96.20 Unspecified Escherichia coli [E. coli] as the cause of diseases classified elsewhere; G47.33 Obstructive sleep apnea (adult) (pediatric); F09 Unspecified mental disorder due to known physiological condition; L60.8 Other nail disorders
CPT/HCPCS: 31623; 31720; 36415; 36600; 43246; 70450-TC; 71045-TC; 71250-TC; 73130-TC; 74018; 80048-TC; 80053-TC; 80061-TC; 80076-TC; 80202-TC; 81001; 82140-TC; 82607-TC; 82803-TC; 82962-TC; 83605-TC; 83735-TC; 83921; 84100-TC; 84443-TC; 84478-TC; 84484-TC; 85025-TC; 85730-TC; 87040-TC; 87081-TC; 87086-TC; 93307-TC; 94002-TC; 94003-TC; 94760-TC; 94762-TC; 94799-TC; 99082-TC; A4223; A6253; A6403; A7526; A9563; G0378; J0360; J0690; J0692; J1100; J1200; J1650; J1815; J1940; J2250; J2470; J2704; J2765; J3010; J3370; J3475; J3480; J3490; J7030; J7042; J7050; J7060; J8597; Q9967

== ENCOUNTER 2025-02-16 00:30 | Emergency (ER) | payer MEDICARE, OTHER ==
[~2025-02-16] VITALS: Ht 152.4 cm; Wt 92.5 kg
[~2025-02-16 00:30] MED LIST: ACET325T53 PO; ALLA266C2 TP; ASCO-352 PO; ATOR20TA PO; DOCU100C36 PO; ENOX40DI SQ; FAMO20TA80 PO; GABA300C PO; GLUC1KIT IM; INSU100V42 SQ; LEVO50TA8 PO; METF-440 PO; METO5TAB87 PO; MINE133E RC; MULT-213 PO; NALO4SPR NS; NEOM28OI TP; ONDA-97 PO; OXYC1TAB12 PO; POLY17PO4 PO; POVI1MED TP; ZINC50TA39 PO
[2025-02-16 00:58] LABS: PLATELET COUNT (AUTO) 479 K/uL (150-450); RED BLOOD CELL COUNT(AUTO) 4.09 MIL/uL (4.0-5.2); RED CELL DISTRIBUTION WIDTH 16.2 % (11.5-15.0); WHITE BLOOD COUNT (AUTO) 12.3 K/uL (4.3-11.0)
[2025-02-16 01:09] LABS: CALCIUM, SERUM 9.5 mg/dL (8.5-10.1); CREATININE 0.7 mg/dL (0.6-1.3); SODIUM SERUM 130 mmol/L (136-145); UREA NITROGEN, BLOOD 22 mg/dL (7-18)
[2025-02-16 01:10] LABS: INR 0.97 (0.91-1.10)
[2025-02-16 02:18] LABS: APPEARANCE,URINE CLEAR (CLEAR); BLOOD, URINE NEGATIVE Ery/uL (NEGATIVE); LEUKOCYTE ESTERASE ,URINE NEGATIVE (NEGATIVE); NITRITE, URINE NEGATIVE (NEGATIVE); UGLUCOSE NEGATIVE (NEGATIVE)
[2025-02-16] MEDS ORDERED: LORAZEPAM INJ 2 MG/ML VIAL ONE (04:18)
[2025-02-16] MEDS: LORAZEPAM INJ 2 MG/ML VIAL IV ONE (04:21)
[2025-02-16 07:02] VITALS: BP 151/59; TEMP 98; O2SAT 99
== END 2025-02-16 07:02 ==
LOC: ER 00:38
DX: Z71.1 Person with feared health complaint in whom no diagnosis is made (principal); F03.911 Unspecified dementia, unspecified severity, with agitation; E03.9 Hypothyroidism, unspecified; E11.9 Type 2 diabetes mellitus without complications; I25.2 Old myocardial infarction; Z79.84 Long term (current) use of oral hypoglycemic drugs; Z79.899 Other long term (current) drug therapy
CPT/HCPCS: 99285; 96374; 71045; 93005; 85025; 80048; 81003; 36415; 84484 ×2; 85730; 31720; J2060